=== PATIENT | female | born 1995 | race Caucasian/White ===

== ENCOUNTER 2017-02-02 12:24 | Emergency (ER) | payer MEDICAID ==
[2017-02-02 12:25] VITALS: BMI 19.3
[2017-02-02] MEDS ORDERED: Sodium Chloride 0.9% 1,000 ML IV STA (12:38)
[2017-02-02 12:42] VITALS: TEMP 98; O2SAT 97
--- NOTE | 2017-02-02 13:12 | ED PDOC ---
Arrival/HPI - General Chief Complaint: Female Genitourinary Time Seen by Provider: 02/02/17 12:28 Historian: Patient - History of Present Illness Narrative History of Present Illness (Text): 02/02/17 13:10 21 year old female, , LMP approximately , presents to the emergency department with vaginal spotting for 1 day. Denies dysuria, hematuria , fever, cough, abdominal pain, nausea or vomiting. Patient states she had an ultrasound last month which showed viable fetus. Time/Duration: 24 hours Symptom Onset: Gradual Symptom Course: Unchanged Modifying Factors (Text): None Associated Symptoms (Text): None Past Medical History - Provider Review Nursing Documentation Reviewed: Yes - Infectious Disease Hx of Infectious Diseases: None - Psychiatric Hx Substance Use: No - Anesthesia Hx Anesthesia: No Hx Anesthesia Reactions: No Hx Malignant Hyperthermia: No Family/Social History - Physician Review Nursing Documentation Reviewed: Yes Family/Social History: Unknown Family HX Smoking Status: Never Smoked Hx Alcohol Use: No Hx Substance Use: No Allergies/Home Meds Allergies/Adverse Reactions: Allergies No Known Allergies Allergy (Verified 07/25/16 00:42) Home Medications: Home Meds Medication Instructions Recorded Confirmed No Known Home Med 02/02/17 02/02/17 Review of Systems - Physician Review All systems were reviewed & negative as marked: Yes - Review of Systems Constitutional: absent: Fevers Respiratory: absent: Cough Gastrointestinal: absent: Abdominal Pain, Nausea, Vomiting Genitourinary Female: Other (Vaginal spotting). absent: Dysuria, Hematuria Physical Exam Vital Signs Reviewed: Yes Vital Signs Temp Pulse Resp BP Pulse Ox 02/02/17 14:34 70 16 106/51 L 02/02/17 12:41 98.0 F 102 H 18 121/72 97 02/02/17 12:31 98 F 102 H 16 121/72 100 Temperature: Afebrile Blood Pressure: Normal Pulse: Tachycardic Respiratory Rate: Normal Appearance: Positive for: Well-Appearing, Non-Toxic, Comfortable Pain Distress: None Mental Status: Positive for: Alert and Oriented X 3 - Systems Exam Head: Present: Atraumatic, Normocephalic Pupils: Present: PERRL Extroacular Muscles: Present: EOMI Conjunctiva: Present: Normal Mouth: Present: Moist Mucous Membranes Neck: Present: Normal Range of Motion Respiratory/Chest: Present: Clear to Auscultation, Good Air Exchange. No: Respiratory Distress, Accessory Muscle Use Cardiovascular: Present: Regular Rate and Rhythm, Normal S1, S2. No: Murmurs Abdomen: Present: Normal Bowel Sounds, Other (Fundus approximately 4 cm below umbilicus). No: Tenderness, Distention, Peritoneal Signs Back: Present: Normal Inspection Upper Extremity: Present: Normal Inspection. No: Cyanosis, Edema Lower Extremity: Present: Normal Inspection. No: Edema Neurological: Present: GCS=15, CN II-XII Intact, Speech Normal Skin: Present: Warm, Dry, Normal Color. No: Rashes Psychiatric: Present: Alert, Oriented x 3, Normal Insight, Normal Concentration Medical Decision Making ED Course and Treatment: Impression: 21 year old female, , LMP approximately , presents to the emergency department with vaginal spotting for 1 day. Plan: -- US -- Labs -- Reassess and disposition Prior Visits: Notes and results from previous visits were reviewed. Patient last seen in the ED on 07/24/16 for right lower quadrant pain and discharged home. Progress Notes: - Lab Interpretations Lab Results: 02/02/17 13:10 02/02/17 13:10 Lab Results 02/02/17 15:00: Blood Type Confirm AB POSITIVE 02/02/17 13:10: WBC 8.1, RBC 4.04, Hgb 11.4 L, Hct 32.5 L, MCV 80.4, MCH 28.2, MCHC 35.1, RDW 12.6, Plt Count 266, MPV 10.8, Gran % 67.7, Lymph % (Auto) 24.5, [place] % (Auto) 6.9 H, Eos % (Auto) 0.9 L, Baso % (Auto) 0.0, Gran # 5.51, Lymph # 2.0, [place] # 0.6, Eos # 0.1, Baso # 0.00, Sodium 137, Potassium 3.6, Chloride 102, Carbon Dioxide 22, Anion Gap 17, BUN 12, Creatinine 0.4 L, Est GFR ( Amer) > 60, Est GFR (Non-Af Amer) > 60, Random Glucose 84, Calcium 9.7, Total Bilirubin 0.3, AST 20, ALT 18, Alkaline Phosphatase 42, Total Protein 8.0 , Albumin 4.1, Globulin 3.9, Albumin/Globulin Ratio 1.1, Beta HCG, Quant 77006.00 H, Blood Type AB POSITIVE, Antibody Screen Negative, BBK History Checked No verified bt - RAD Interpretation Narrative RAD Interpretations (Text): Ultrasound Hydrotreater Operator : Angelika Fuller MD Indication: Abdominal cramping/vaginal spotting. Approximately 15 weeks . Comparison: None available Findings: There is a single intrauterine fetus present. Fetus has a composite sonographic age of 14 weeks 1 day. This calculation is based on the biparietal diameter, head circumference, abdominal circumference, and femur length. Variable presentation. Limited visualization of the placenta on submitted views appears posterior fundal. Cervix length measures approximately 3.4 cm. There is heart motion which measured 142.5 BPM. Bilateral ovaries were not visualized. Impression: Live single intrauterine with estimated gestational age 14 weeks 1 day. heart rate 142.5 bpm. Advise an anomaly screen at 16-18 weeks gestational age Radiology Orders: 02/02/17 12:38 AGE [US] Stat Dot Etcher: Radiologist - Medication Orders Current Medication Orders: Discontinued Medications Sodium Chloride (Sodium Chloride 0.9%) 1,000 mls @ 999 mls/hr IV .Q1H1M STA Stop: 02/02/17 13:38 Last Admin: 02/02/17 13:15 Dose: 999 MLS/HR eMAR Start Stop Document 02/02/17 13:15 NICKO (Rec: 02/02/17 13:25 NICKO [id number]) Intravenous Solution Start Date 02/02/17 Start Time 13:15 End Date 02/02/17 End time 14:15 Total Infusion Time 60 - Scribe Statement The provider has reviewed the documentation as recorded by the Keiko Winter Provider Scribe Attestation: All medical record entries made by the Zachariahibcasey were at my direction and personally dictated by me. I have reviewed the chart and agree that the record accurately reflects my personal performance of the history, physical exam, medical decision making, and the department course for this patient. I have also personally directed, reviewed, and agree with the discharge instructions and disposition. Disposition/Present on Arrival - Present on Arrival Any Indicators Present on Arrival: No History of DVT/PE: No History of Uncontrolled Diabetes: No Urinary Catheter: No History of Decub. Ulcer: No History Surgical Site Infection Following: None - Disposition Have Diagnosis and Disposition been Completed?: Yes Diagnosis: Vaginal bleeding before 22 weeks gestation Disposition: HOME/ ROUTINE Disposition Time: 15:15 Patient Plan: Discharge Condition: STABLE Discharge Instructions (ExitCare): First Trimester Vaginal Bleed (ED) Additional Instructions: Thank you for letting us take care of you today. Your provider was Dr. Rendon. You were treated for vaginal bleeding during your first trimester. The emergency medical care you received today was directed at your acute symptoms. If you were prescribed any medication, please fill it and take as directed. It may take several days for your symptoms to resolve. Return to the Emergency Department if your symptoms worsen, do not improve, or if you have any other problems. Please contact your doctor or call one of the physicians/clinics you have been referred to that are listed on the Patient Visit Information form that is included in your discharge packet. Bring any paperwork you were given at discharge with you along with any medications you are taking to your follow up visit. Our treatment cannot replace ongoing medical care by a primary care provider (PCP) outside of the emergency department. Thank you for allowing the [facility] team to be part of your care today. Follow up with your CENTRAL OFFICE REPAIRER doctor this week for re-evaluation. Referrals: [employer] [place] Redouglas, [Family Provider] - Follow up with primary
[2017-02-02 13:47] LABS: ADD MANUAL DIFF? NO
[2017-02-02 13:58] LABS: EOS # 0.1 (0.0-0.7); EOS % 0.9 % (1.5-5.0); GRAN # 5.51 (1.4-6.5); GRAN % 67.7 % (50.0-68.0); HEMATOCRIT 32.5 % (36.0-48.0); LYMPH % 24.5 % (22.0-35.0); MEAN CELL VOLUME 80.4 fL (80.0-105.0); MEAN CORPUSCULAR HEMOGLOBIN 28.2 pg (25.0-35.0); MEAN CORPUSCULAR HGB CONC 35.1 g/dl (31.0-37.0); MEAN PLATELET VOLUME 10.8 fl (7.0-11.0); MONO # 0.6 (0.1-0.6); MONO % 6.9 % (1.0-6.0); PLATELET COUNT 266 10^3/uL (120.0-450.0); RED CELL DISTRIBUTION WIDTH 12.6 % (11.5-14.5); WHITE BLOOD COUNT 8.1 10^3/ul (4.5-11.0)
[2017-02-02 14:07] LABS: ALB/GLOB RATIO 1.1 (1.1-1.8); ALKALINE PHOSPHATASE 42 U/L (38-133); ALT/SGPT 18 U/L (7-56); AST/SGOT 20 U/L (15-39); BILIRUBIN,TOTAL 0.3 mg/dL (0.2-1.3); BLOOD UREA NITROGEN 12 mg/dL (7-21); CALCIUM 9.7 mg/dL (8.4-10.5); CARBON DIOXIDE 22 mmol/L (21-33); CHLORIDE 102 mmol/L (98-107); GFR AFRICAN-AMERICAN > 60; GLUCOSE,RANDOM 84 mg/dL (70-110); POTASSIUM 3.6 mmol/L (3.6-5.0); SODIUM 137 mmol/L (132-148)
--- NOTE | 2017-02-02 14:21 | US ---
Indication: Abdominal cramping/vaginal spotting. Approximately 15 weeks . Comparison: None available Technique: age ultrasound Findings: There is a single intrauterine fetus present. Fetus has a composite sonographic age of 14 weeks 1 day. This calculation is based on the biparietal diameter, head circumference, abdominal circumference, and femur length. Variable presentation. Limited visualization of the placenta on submitted views appears posterior fundal. Cervix length measures approximately 3.4 cm. There is heart motion which measured 142.5 BPM. Bilateral ovaries were not visualized. Impression: Live single intrauterine with estimated gestational age 14 weeks 1 day. heart rate 142.5 bpm. Advise an anomaly screen at 16-18 weeks gestational age
[2017-02-02 14:38] VITALS: BP 106/51; PULSE 70; RESP 16
== END 2017-02-02 15:46 | disposition home or self-care (01) ==
LOC: ED 12:24
DX: O46.92 Antepartum hemorrhage, unspecified, second trimester (principal); Z3A.15 15 weeks gestation of pregnancy
CPT/HCPCS: 76815; 80053; 84702; 85025; 86850; 86900; 87086; 96360; 99282; J7040

== ENCOUNTER 2017-04-01 10:01 | Emergency (ER) | payer MEDICAID, OTHER ==
[2017-04-01 10:11] VITALS: RESP 18; TEMP 98.5; O2SAT 100; BMI 20.7
[2017-04-01] MEDS ORDERED: Sodium Chloride 0.9% 1,000 ML IV STA (10:33)
--- NOTE | 2017-04-01 10:36 | ED PDOC ---
Arrival/HPI - General Chief Complaint: Abdominal Pain Time Seen by Provider: 04/01/17 10:13 Historian: Patient, Spouse, Information Security Systems Instructor ([id number] function as a floor covering layer, as per patient request) EM Caveat: Language Barrier - History of Present Illness Narrative History of Present Illness (Text): 04/01/17 10:28 A 21 year old G1:P0 female presents to the emergency department complaining of lower abdominal pain. Patient reports her last menstrual cycle was 11/05/16. She states this morning she woke up with lower abdominal pain, urinary frequency and urinary urgency. Pain radiates to the back. Patient denies any nausea, vomiting, diarrhea, vaginal bleeding, vaginal discharge, fever or any other complaints at this time. Patient [id number] function as floor covering layer, as per patient request. Patient does not smoke, drink or use drugs. Time/Duration: 1-3 hours Symptom Onset: Sudden Symptom Course: Unchanged Quality: Other Activities at Onset: Rest Context: Home Associated Symptoms (Text): 04/01/17 12:03 1 para 0. LMP 11/05. She woke up this morning with lower abdominal pain. There are some genitourinary symptoms. No back pain. No vaginal discharge or bleeding. and [id number] translate. No nausea vomiting diarrhea constipation or GI bleed. Past Medical History - Provider Review Nursing Documentation Reviewed: Yes - Infectious Disease Hx of Infectious Diseases: None - Psychiatric Hx Substance Use: No - Anesthesia Hx Anesthesia: No Hx Anesthesia Reactions: No Hx Malignant Hyperthermia: No Family/Social History - Physician Review Nursing Documentation Reviewed: Yes Family/Social History: Unknown Family HX Smoking Status: Never Smoked Hx Alcohol Use: No Hx Substance Use: No Allergies/Home Meds Allergies/Adverse Reactions: Allergies No Known Allergies Allergy (Verified 04/01/17 10:11) Home Medications: Home Meds Medication Instructions Recorded Confirmed 123/Iron/Folic/Omeg3s 1 cap PO DAILY 04/01/17 04/01/17 [One-A-Day 1 Dha Sfgl] Review of Systems - Review of Systems Systems not reviewed;Unavailable: Language Barrier Constitutional: absent: Fevers ENT: Normal Respiratory: Normal Cardiovascular: Normal Gastrointestinal: Abdominal Pain. absent: Diarrhea, Nausea, Vomiting Genitourinary Female: Frequency, Other (urinary uregency). absent: Vaginal Bleeding, Vaginal Discharge Musculoskeletal: Back Pain Neurological: Normal Physical Exam Vital Signs Reviewed: Yes Vital Signs Temp Pulse Resp BP Pulse Ox 04/01/17 11:42 89 18 104/68 100 04/01/17 10:06 98.5 F 95 H 18 102/70 100 Temperature: Afebrile Blood Pressure: Normal Pulse: Regular Respiratory Rate: Normal Appearance: Positive for: Well-Appearing, Non-Toxic, Comfortable Pain Distress: None Mental Status: Positive for: other (awake alert and cooperative.) - Systems Exam Head: Present: Atraumatic, Normocephalic Pupils: Present: PERRL Extroacular Muscles: Present: EOMI Conjunctiva: Present: Normal Mouth: Present: Moist Mucous Membranes Pharnyx: No: ERYTHEMA, EXUDATE, TONSILS ENLARGED Neck: Present: Normal Range of Motion Respiratory/Chest: Present: Clear to Auscultation, Good Air Exchange. No: Respiratory Distress, Accessory Muscle Use Cardiovascular: Present: Regular Rate and Rhythm, Normal S1, S2. No: Murmurs Abdomen: Present: Tenderness (tenderness with palpation to the right lower quadrant), Normal Bowel Sounds, Other (garvid). No: Distention, Peritoneal Signs, Rebound, Guarding Back: Present: Normal Inspection Upper Extremity: Present: Normal Inspection. No: Cyanosis, Edema Lower Extremity: Present: Normal Inspection. No: Edema Neurological: Present: GCS=15, CN II-XII Intact, Speech Normal, Motor Func Grossly Intact Skin: Present: Warm, Dry, Normal Color. No: Rashes Psychiatric: Present: Alert, Normal Insight, Normal Concentration Medical Decision Making ED Course and Treatment: 04/01/17 10:28 Impression: A 21 year old female with lower abdominal pain, urinary urgency and frequency. Differential Diagnosis include but are not limited to: appendicitis vs ectopic vs. UTI Plan: -- Abdomen ultrasound -- Labs -- Urinalysis -- IV Fluids -- Reassess and disposition Prior Visits: Notes and results from previous visits were reviewed. The patient last presented to the emergency department on 02/02/17 for evaluation of vaginal spotting. Progress Notes: - Lab Interpretations Lab Results: 04/01/17 10:40 04/01/17 10:40 Lab Results 04/01/17 10:40: Sodium 133, Potassium 3.9, Chloride 100, Carbon Dioxide 23, Anion Gap 14, BUN 9, Creatinine 0.4 L, Est GFR ( Amer) > 60, Est GFR (Non -Af Amer) > 60, Random Glucose 73, Calcium 9.2, Total Bilirubin 0.8, AST 28, ALT 27, Alkaline Phosphatase 45, Total Protein 7.2, Albumin 3.6, Globulin 3.6, Albumin/Globulin Ratio 1.0 L, Lipase 63 04/01/17 10:40: PT 11.1, INR 1.03, APTT 28.2 04/01/17 10:40: WBC 9.7, RBC 3.86, Hgb 11.1 L, Hct 31.7 L, MCV 82.1, MCH 28.8, MCHC 35.0, RDW 13.4, Plt Count 272, MPV 10.2, Gran % 77.7 H, Lymph % (Auto) 16.5 L, [place] % (Auto) 5.0, Eos % (Auto) 0.7 L, Baso % (Auto) 0.1, Gran # 7.50 H , Lymph # 1.6, [place] # 0.5, Eos # 0.1, Baso # 0.01 04/01/17 10:30: Urine Color Yellow, Urine Appearance Clear, Urine pH 6.0, Ur Specific [place] >= 1.030, Urine Protein Negative, Urine Glucose (UA) Negative, Urine Ketones 15 H, Urine Blood Trace-intact H, Urine Nitrate Negative, Urine Bilirubin Negative, Urine Urobilinogen 0.2, Ur Leukocyte Esterase Moderate H, Urine RBC 0 - 2, Urine WBC 15 - 20, Ur Epithelial Cells 0 - 2, Urine Bacteria Small I have reviewed the lab results: Yes - RAD Interpretation Radiology Orders: 04/01/17 10:32 ABDOMEN COMPLETE [US] Stat 04/01/17 11:06 AGE [US] Stat Ultrasound of the abdomen is read by the radiologist shows no evidence of acute appendicitis. shows 22 week IUP. Custom Bow Maker: Radiologist - Medication Orders Current Medication Orders: Discontinued Medications Sodium Chloride (Sodium Chloride 0.9%) 1,000 mls @ 1,000 mls/hr IV .Q1H STA Stop: 04/01/17 11:32 Last Admin: 04/01/17 10:35 Dose: 1,000 mls/hr - Scribe Statement The provider has reviewed the documentation as recorded by the Keiko Cifuentes Provider Scribe Attestation: All medical record entries made by the Keiko were at my direction and personally dictated by me. I have reviewed the chart and agree that the record accurately reflects my personal performance of the history, physical exam, medical decision making, and the department course for this patient. I have also personally directed, reviewed, and agree with the discharge instructions and disposition. Disposition/Present on Arrival - Present on Arrival Any Indicators Present on Arrival: No History of DVT/PE: No History of Uncontrolled Diabetes: No Urinary Catheter: No History of Decub. Ulcer: No History Surgical Site Infection Following: None - Disposition Have Diagnosis and Disposition been Completed?: Yes Diagnosis: Intrauterine , Urinary tract infection Disposition: HOME/ ROUTINE Disposition Time: 12:37 Patient Plan: Discharge Condition: GOOD Discharge Instructions (ExitCare): Urinary Tract Infection in (ED) Additional Instructions: Follow-up with PMD and SCIENTIFIC SOFTWARE ENGINEER. Follow-up in ER as needed. Prescriptions: Amoxicillin [Amoxil 250 mg Cap] 250 mg PO TID #21 cap Referrals: PCP,NO [Primary Care Provider] - Follow up with primary
[2017-04-01 10:54] LABS: URINE BILIRUBIN NEGATIVE (NEGATIVE); URINE BLOOD TRACE-INTACT (NEGATIVE); URINE GLUCOSE (UA) NEGATIVE (NEGATIVE); URINE KETONE 15 mg/dL (NEGATIVE); URINE LEUKOCYTE ESTERASE MODERATE Leu/uL (NEGATIVE); URINE PROTEIN NEGATIVE mg/dL (<30 mg/dL); URINE UROBILINOGEN 0.2 E.U./dL (<1 E.U./dL)
[2017-04-01 10:58] LABS: URINE APPEARANCE CLEAR (CLEAR); URINE COLOR YELLOW (YELLOW)
[2017-04-01 11:03] LABS: URINE BACTERIA SMALL (NEG); URINE EPITHELIAL CELLS 0 - 2 /hpf (0-5); URINE RBC 0 - 2 /hpf (0-2); URINE WBC 15 - 20 /hpf (0-6)
[2017-04-01 11:06] LABS: ADD MANUAL DIFF? NO
[2017-04-01 11:09] LABS: BASO # 0.01 K/mm3 (0.0-2.0); BASO % 0.1 % (0.0-3.0); EOS # 0.1 (0.0-0.7); EOS % 0.7 % (1.5-5.0); GRAN % 77.7 % (50.0-68.0); HEMATOCRIT 31.7 % (36.0-48.0); LYMPH # 1.6 (1.2-3.4); LYMPH % 16.5 % (22.0-35.0); MEAN CELL VOLUME 82.1 fL (80.0-105.0); MEAN CORPUSCULAR HEMOGLOBIN 28.8 pg (25.0-35.0); MEAN PLATELET VOLUME 10.2 fl (7.0-11.0); MONO # 0.5 (0.1-0.6); PLATELET COUNT 272 10^3/uL (120.0-450.0); RED CELL DISTRIBUTION WIDTH 13.4 % (11.5-14.5); WHITE BLOOD COUNT 9.7 10^3/ul (4.5-11.0)
[2017-04-01 11:19] LABS: INR 1.03 (0.93-1.08); PARTIAL THROMBOPLASTIN TIME 28.2 Seconds (23.7-30.8)
[2017-04-01 11:22] LABS: ALKALINE PHOSPHATASE 45 U/L (38-133); ALT/SGPT 27 U/L (7-56); AST/SGOT 28 U/L (15-39); BILIRUBIN,TOTAL 0.8 mg/dL (0.2-1.3); BLOOD UREA NITROGEN 9 mg/dL (7-21); CALCIUM 9.2 mg/dL (8.4-10.5); CARBON DIOXIDE 23 mmol/L (21-33); CHLORIDE 100 mmol/L (98-107); GFR AFRICAN-AMERICAN > 60; GLUCOSE,RANDOM 73 mg/dL (70-110); LIPASE 63 U/L (23-300); POTASSIUM 3.9 mmol/L (3.6-5.0); SODIUM 133 mmol/L (132-148); TOTAL PROTEIN 7.2 g/dL (5.8-8.3)
--- NOTE | 2017-04-01 12:11 | US ---
PROCEDURE: Obstetrical ultrasound examination HISTORY: FLANK PAIN COMPARISON: 02/02/2017 TECHNIQUE: Transabdominal FINDINGS: The examination demonstrates a single live intrauterine gestation in cephalic presentation. The heart rate is 150 beats per minute. Normal quantity of amniotic fluid is visualized. A posterior fundal placenta is seen. There is no evidence of placenta previa. The cervix is closed and measures 5.3 cm in length. biometry yields an average ultrasound age of 22 weeks 4 days. The GIANCARLO by ultrasound examination is 08/01/2017. EFW is 507.42 g No gross anatomic abnormality was identified no full anatomic survey was not performed. There is fluid distending the stomach and urinary bladder. The anterior abdominal wall is intact. There is a three-vessel umbilical cord. A 4 chamber heart is demonstrated. No abnormality of the spine is seen. The ovaries were not visualized. No adnexal masses were seen. IMPRESSION: Single live intrauterine gestation of approximately 22 weeks 4 days gestational age. heart rate 150 beats per minute. GIANCARLO is 08/01/2017. Cephalic presentation. Posterior fundal placenta. No placenta previa. No gross anatomic abnormality.
--- NOTE | 2017-04-01 12:20 | US ---
HISTORY: R/O appendicitis, LMP 11/05 COMPARISON: None. TECHNIQUE: Sonographic evaluation of the abdomen. FINDINGS: LIVER: Measures 13.8 cm. Normal echogenicity of the liver parenchyma. No mass. No intrahepatic bile duct dilatation. GALLBLADDER: Unremarkable. No gallstones. COMMON BILE DUCT: Measures 4 mm. No stones. No dilatation. PANCREAS: Unremarkable as visualized. No mass. No ductal dilatation. RIGHT KIDNEY: Measures 11.4cm. Normal echogenicity. No calculus, mass, or hydronephrosis. LEFT KIDNEY: Measures 11.5cm. Normal echogenicity. No calculus, mass, or hydronephrosis. SPLEEN: Normal in size and contour. No mass. AORTA: No aneurysmal dilatation. IVC: Unremarkable. OTHER FINDINGS: Examination of the abdominal right lower quadrant fails to demonstrate evidence of acute appendicitis. There is no abscess or solid mass identified. IMPRESSION: Unremarkable abdominal sonogram. No sonographic evidence of acute appendicitis.
[2017-04-01 13:33] VITALS: BP 106/69; PULSE 79
== END 2017-04-01 13:44 | disposition home or self-care (01) ==
LOC: ED 10:01
DX: O23.42 Unspecified infection of urinary tract in pregnancy, second trimester (principal); Z3A.22 22 weeks gestation of pregnancy
CPT/HCPCS: 76700; 76815; 80053; 81001; 83690; 85025; 85610; 85730; 87086; 96360; 99285; J7040